=== PATIENT | female | born 1995 | race Caucasian/White ===

== ENCOUNTER 2022-10-22 06:15 | Inpatient (IN) | payer OTHER ==
[2022-10-22] MEDS ORDERED: ELECTROLYTE-148 SOLN 500 ML IV ONE ×2 (06:40→07:10)
[2022-10-22] MEDS ORDERED: CITRIC ACID/SODIUM CITRATE 30 ML UNIT-DOSE CUP PO ONE ×2 (06:40→09:20)
[2022-10-22 07:28] VITALS: BMI 36.8
[2022-10-22] MEDS ORDERED: morphine SULFATE/PF 1 MG/2 ML (2cc Syringe - QUVA) ONE (07:54)
[2022-10-22] MEDS ORDERED: OXYTOCIN 30 UNITS in 0.9% NS 30 UNIT/500 ML INFUS.BAG IVPB ONE (07:54)
[2022-10-22] MEDS ORDERED: PHENYLEPHRINE HCL 10 MG/1 ML SINGLE DOSE VIAL ONE (07:55)
[2022-10-22] MEDS ORDERED: ONDANSETRON 4 MG/2 ML VIAL ONE (07:55)
[2022-10-22] MEDS ORDERED: METOCLOPRAMIDE HCL INJECTION 10 MG/2 ML VIAL ONE (07:55)
[2022-10-22] MEDS ORDERED: DEXAMETHASONE SOD PHOSPHATE 4 MG/1 ML VIAL ONE (07:55)
[2022-10-22] MEDS ORDERED: FENTANYL CITRATE/PF 50 MCG/ML VIAL ONE (07:55)
[2022-10-22] MEDS ORDERED: ceFAZolin SODIUM 1 GM VIAL ONE (07:55)
[2022-10-22] MEDS ORDERED: morphine SULFATE/PF 1 MG/2 ML (2cc Syringe - QUVA) IT ONE (08:16)
[2022-10-22] MEDS ORDERED: KETOROLAC TROMETHAMINE 60 MG/2 ML VIAL ONE (09:03)
[2022-10-22] MEDS ORDERED: OXYTOCIN 20 UNITS in 0.9% NS 20 UNIT/1,000 ML INFUS.BAG IV ONE (09:15)
[2022-10-22] MEDS ORDERED: ONDANSETRON 4 MG/2 ML VIAL IVPUSH PRN (09:18)
[2022-10-22] MEDS: OXYTOCIN 20 UNITS in 0.9% NS 20 UNIT/1,000 ML INFUS.BAG IV SCH ×2 (09:20→18:34)
[2022-10-22] MEDS ORDERED: METHYLERGONOVINE MALEATE 0.2 MG/1 ML AMP IM PRN (09:25)
[2022-10-22] MEDS ORDERED: ACETAMINOPHEN 325 MG TABLET (FP) PO PRN (09:25)
[2022-10-22] MEDS ORDERED: ELECTROLYTE-148 SOLN 1,000 ML IV SCH (09:30)
[2022-10-23] MEDS: SIMETHICONE 80 MG TAB.CHEW (FP) PO PRN ×4 (03:33→23:43)
[2022-10-23] MEDS: IBUPROFEN 600 MG TABLET (FP) PO PRN ×3 (03:33→17:20)
[2022-10-23 08:31] LABS: BASO % 0.4 % (0-2.0); EOS % 0.1 % (0-4.5); HEMATOCRIT 30.6 % (32.4-45.2); HEMOGLOBIN 9.9 GM/dL (10.7-15.3); LYMPH % 15.9 % (8-40); MCHC 32.2 g/dl (32.0-36.0); MEAN CELL VOLUME 86.9 fl (80-96); MEAN PLT VOLUME 8.8 fl (7.5-11.1); NEUT % 77.6 % (42.8-82.8); PLATELET COUNT 257 10^3/uL (134-434); RBC 3.53 M/mm3 (3.60-5.2); RDW 15.5 % (11.6-15.6); WHITE BLOOD COUNT 11.2 K/mm3 (4.0-10.0)
[2022-10-23] MEDS ORDERED: BISACODYL 10 MG SUPP.RECT RC PRN (09:25)
[2022-10-23] MEDS ORDERED: DIPHTH,PERTUSS(ACELL),TET 0.5 ML DISP.SYRIN IM ONE (10:00)
[2022-10-23] MEDS: oxyCODONE HCL 5 MG TABLET PO PRN ×2 (10:58→23:43)
[2022-10-24] MEDS: IBUPROFEN 600 MG TABLET (FP) PO PRN ×2 (05:14→23:39)
[2022-10-24] MEDS: oxyCODONE HCL 5 MG TABLET PO PRN (13:28)
[2022-10-24 14:26] VITALS: RESP 18
[2022-10-24] MEDS: SIMETHICONE 80 MG TAB.CHEW (FP) PO PRN (19:47)
[2022-10-25] MEDS: SIMETHICONE 80 MG TAB.CHEW (FP) PO PRN ×2 (03:48→08:35)
[2022-10-25] MEDS: oxyCODONE HCL 5 MG TABLET PO PRN (03:48)
[2022-10-25] MEDS: IBUPROFEN 600 MG TABLET (FP) PO PRN (08:35)
[2022-10-25 08:39] VITALS: BP 125/85; PULSE 92; TEMP 98.1
== END 2022-10-25 15:15 | disposition home or self-care (01) | DRG 540 ==
LOC: JLDR 06:15 → J3W 10:45
PROVIDERS: ADMIT Obstetrics & Gynecology; ATTEND Obstetrics & Gynecology
PROC: 10D00Z1 Extraction of Products of Conception, Low, Open Approach (ICD-10-PCS; principal; 2022-10-22)
DX: O36.63X0 Maternal care for excessive fetal growth, third trimester, not applicable or unspecified (principal); O99.824 Streptococcus B carrier state complicating childbirth; Z3A.39 39 weeks gestation of pregnancy; Z37.0 Single live birth
CPT/HCPCS: 36415; 80053; 85025; 85610; 85730; 86780; 86850; 86900; 86901; 87389; 88307-TC; 90715; 94010